=== PATIENT | male | born 1965 | race Caucasian/White ===

== ENCOUNTER → 2021-03-28 | Outpatient (CLI) | payer OTHER | LOC: CT 12:36 | DX: R10.11 Right upper quadrant pain (principal) | CPT/HCPCS: 36415; 82565; 84520; Q9967 ==

== ENCOUNTER → 2021-05-11 | Outpatient (CLI) | payer OTHER | LOC: SLEEP-COR 10:27 | DX: G47.33 Obstructive sleep apnea (adult) (pediatric) (principal) | CPT/HCPCS: 95810 ==

== ENCOUNTER → 2021-09-04 | Outpatient (CLI) | payer OTHER | LOC: KOH-I 13:39 | DX: M25.551 Pain in right hip (principal); M85.861 Other specified disorders of bone density and structure, right lower leg | CPT/HCPCS: 71046 ==